=== PATIENT | male | born 1980 | race Caucasian/White ===

== ENCOUNTER 2019-09-24 19:11 | Emergency (ER) | payer MEDICAID, SELFPAY ==
[~2019-09-24] VITALS: Ht 160 cm; Wt 70.3 kg
[2019-09-24 19:16] VITALS: BP 153/72
[2019-09-24] MEDS ORDERED: NACL 0.9% 2,000 ML IV SCH (20:02)
[2019-09-24] MEDS ORDERED: ACETAMINOPHEN EXTRA STRENGTH 500 MG TAB PO ONE (20:05)
[2019-09-24] MEDS ORDERED: cefTRIAXone 1,000 MG VIAL ONE (20:16)
[2019-09-24 20:42] LABS: APPEARANCE,URINE CLEAR (CLEAR); BILIRUBIN,URINE 1+ (NEGATIVE); BLOOD, URINE 1+ (NEGATIVE); COLOR,URINE YELLOW (YELLOW); LEUKOCYTE ESTERASE ,URINE NEGATIVE (NEGATIVE); NITRITE, URINE NEGATIVE (NEGATIVE); PH,URINE 5.5 (5.0-9.0); UGLUCOSE NEGATIVE (NEGATIVE)
[2019-09-24 20:42] LABS: BASOPHILS # (AUTO) 0.1 K/uL (0.00-0.22); BASOPHILS % (AUTO) 0.9 % (0.0-2.0); HEMATOCRIT 44.4 % (36-52); HEMOGLOBIN 15.2 g/dL (12.0-18.0); LYMPHOCYTES # (AUTO) 1.1 K/uL (2.0-11.5); LYMPHOCYTES % (AUTO) 13.4 % (20.5-51.1); MEAN CORPUSCULAR HEMOGLOBIN 30 pg (27-31); MEAN CORPUSCULAR HGB CONC 34 g/dL (33-37); MEAN CORPUSCULAR VOLUME 88.7 fL (80-94); MONOCYTES # (AUTO) 0.7 K/uL (0.8-1.0); MONOCYTES % (AUTO) 8.5 % (1.7-9.3); NEUTROPHILS # (AUTO) 6.4 K/uL (1.8-7.7); NEUTROPHILS % (AUTO) 77.2 % (42.2-75.2); PLATELET COUNT (AUTO) 220 K/uL (140-450); RED BLOOD CELL COUNT(AUTO) 5.01 MIL/uL (4.20-6.10); RED CELL DISTRIBUTION WIDTH 12.7 % (11.6-13.7); WHITE BLOOD COUNT (AUTO) 8.3 K/uL (4.8-10.8)
[2019-09-24 20:51] LABS: RBC,URINE 11-20 (MOD) /HPF (0-5); WBC,URINE 0-5 /HPF (0-5)
[2019-09-24 20:54] LABS: PROTHROMBIN TIME 9.7 secs (10.8-13.4)
[2019-09-24 20:55] LABS: ALBUMIN 3.6 g/dL (3.4-5.0); ANION GAP 13.5 (8-16); CARBON DIOXIDE 29.6 mmol/L (21-32); CREATININE 1.2 mg/dL (0.6-1.3); POTASSIUM 4.1 mmol/L (3.5-5.1); TOTAL BILIRUBIN 0.4 mg/dL (0.0-1.0)
[2019-09-24] MEDS ORDERED: AZITHROMYCIN 500 MG in DEXTROSE 5% 250 ML IV ONE (21:25)
[2019-09-24] MEDS ORDERED: AZITHROMYCIN 500 MG INJ VIAL IV ONE (21:32)
[2019-09-24 23:56] VITALS: BP 103/70
== END 2019-09-24 23:55 | disposition home or self-care (01) ==
LOC: MED 19:11 → EEVIPCON 19:11 → MED 23:55
DX: A41.9 Sepsis, unspecified organism (principal); Z20.828 Contact with and (suspected) exposure to other viral communicable diseases; N39.0 Urinary tract infection, site not specified; J18.9 Pneumonia, unspecified organism
CPT/HCPCS: 36415; 71045; 80053; 81001; 83605; 85025; 85610; 85730; 87040; 87086; 87420; 87635; 87804; 96365; 96367; 99284; J0456; J0696; J7030; Q0092

== ENCOUNTER 2019-09-30 20:59 | Inpatient (IN) | payer MEDICAID, SELFPAY ==
[~2019-09-30] VITALS: Ht 157.5 cm; Wt 71.2 kg
[2019-09-30 21:00] VITALS: BP 127/80
[2019-09-30] MEDS ORDERED: AZITHROMYCIN 500 MG in DEXTROSE 5% 250 ML IV ONE (21:20)
[2019-09-30] MEDS ORDERED: ASCORBIC ACID 500 MG TAB PO ONE (21:20)
[2019-09-30] MEDS ORDERED: HYDROXYCHLOROQUINE 200 MG TAB PO ONE (21:20)
[2019-09-30] MEDS ORDERED: ZINC SULF 220 MG CAP PO ONE (21:20)
[2019-09-30] MEDS ORDERED: AZITHROMYCIN 500 MG INJ VIAL IV ONE (21:27)
[2019-09-30] MEDS ORDERED: ACETAMINOPHEN EXTRA STRENGTH 500 MG TAB ONE (21:36)
[2019-09-30 21:46] LABS: BASOPHILS # (AUTO) 0.1 K/uL (0.00-0.22); BASOPHILS % (AUTO) 0.5 % (0.0-2.0); HEMATOCRIT 37.6 % (36-52); HEMOGLOBIN 13.1 g/dL (12.0-18.0); LYMPHOCYTES # (AUTO) 0.7 K/uL (2.0-11.5); LYMPHOCYTES % (AUTO) 4.8 % (20.5-51.1); MEAN CORPUSCULAR HEMOGLOBIN 30 pg (27-31); MEAN CORPUSCULAR HGB CONC 35 g/dL (33-37); MEAN CORPUSCULAR VOLUME 87.2 fL (80-94); MONOCYTES # (AUTO) 0.8 K/uL (0.8-1.0); MONOCYTES % (AUTO) 5.7 % (1.7-9.3); NEUTROPHILS # (AUTO) 12.3 K/uL (1.8-7.7); PLATELET COUNT (AUTO) 358 K/uL (140-450); RED BLOOD CELL COUNT(AUTO) 4.32 MIL/uL (4.20-6.10); WHITE BLOOD COUNT (AUTO) 13.8 K/uL (4.8-10.8)
[2019-09-30] MEDS ORDERED: ACETAMINOPHEN EXTRA STRENGTH 500 MG TAB PO ONE (21:50)
[2019-09-30 22:11] LABS: BILIRUBIN,URINE 1+ (NEGATIVE); BLOOD, URINE 1+ (NEGATIVE); LEUKOCYTE ESTERASE ,URINE NEGATIVE (NEGATIVE); NITRITE, URINE NEGATIVE (NEGATIVE); UGLUCOSE NEGATIVE (NEGATIVE)
[2019-09-30 22:12] LABS: ALBUMIN 2.6 g/dL (3.4-5.0); ANION GAP 16.5 (8-16); CARBON DIOXIDE 23.4 mmol/L (21-32); CREATININE 1.2 mg/dL (0.6-1.3); POTASSIUM 3.9 mmol/L (3.5-5.1); TOTAL BILIRUBIN 1.2 mg/dL (0.0-1.0)
[2019-09-30] MEDS ORDERED: HYDROcodone/APAP 5/325 MG 1 TAB TAB PO PRN (22:25)
[2019-09-30] MEDS ORDERED: NACL 0.9% 1,000 ML IV SCH (22:25)
[2019-09-30] MEDS ORDERED: ONDANSETRON 4 MG/2 ML VIAL IM/IVP PRN (22:25)
[2019-09-30] MEDS ORDERED: MORPHINE SULFATE 2 MG/ML SYR IVP PRN (22:25)
[2019-09-30] MEDS ORDERED: ALBUTEROL HFA MDI 90 MCG/ACTUATION 8 GM INH PRN (22:25)
[2019-09-30] MEDS ORDERED: LORazepam 2 MG/ML VIAL IM/IVP PRN (22:25)
[2019-09-30] MEDS ORDERED: DOCUSATE SODIUM 100 MG GELCAP PO PRN (22:25)
[2019-09-30] MEDS ORDERED: ACETAMINOPHEN 325 MG TAB PO PRN (22:25)
[2019-09-30 22:49] LABS: APPEARANCE,URINE CLOUDY (CLEAR); COLOR,URINE RED (YELLOW)
[2019-09-30 22:51] LABS: WBC,URINE 0-5 /HPF (0-5)
[2019-09-30 22:52] LABS: HYALINE CASTS, URINE 0-10 /LPF (None Seen); URINE AMORPHOUS URATE 4+ /HPF (None Seen)
[2019-09-30 23:00] VITALS: BP 100/61
[2019-09-30 23:17] LABS: MAGNESIUM 2.1 mg/dL (1.8-2.4); PHOSPHORUS 3.4 mg/dL (2.5-4.9); THYROID STIMULATING HORMONE 0.81 uIU/mL (0.34-3.74)
[2019-10-01] MEDS ORDERED: cefTRIAXone 1,000 MG VIAL ONE (00:14)
[2019-10-01] MEDS: PANTOPRAZOLE 40 MG INJ VIAL IVP SCH ×2 (00:41→09:28)
[2019-10-01 02:33] LABS: BARBITURATE, URINE NEGATIVE ng/ml (NEG <=200); BENZODIAZEPINE, URINE NEGATIVE ng/mL (NEG <=200); CANNABINOID, URINE NEGATIVE ng/mL (NEG <=50); COCAINE, URINE NEGATIVE ng/mL (NEG <=300); OPIATE, URINE NEGATIVE ng/mL (NEG <=2000); PHENCYCLIDINE SCREEN,URINE NEGATIVE ng/mL (NEG <=25)
[2019-10-01 04:00] VITALS: BP 103/64
[2019-10-01] MEDS: DEXT 5% / NACL 0.9% 500 ML IV SCH (04:21)
[2019-10-01 06:37] LABS: PROTHROMBIN TIME 10.3 secs (10.8-13.4)
[2019-10-01 06:42] LABS: BASOPHILS % (AUTO) 0.5 % (0.0-2.0); EOSINOPHILS % (AUTO) 0.1 % (0.0-4.0); HEMOGLOBIN 12.8 g/dL (12.0-18.0); LYMPHOCYTES # (AUTO) 0.7 K/uL (2.0-11.5); MEAN CORPUSCULAR HEMOGLOBIN 31 pg (27-31); MEAN CORPUSCULAR HGB CONC 36 g/dL (33-37); MEAN CORPUSCULAR VOLUME 86.3 fL (80-94); MONOCYTES # (AUTO) 0.7 K/uL (0.8-1.0); MONOCYTES % (AUTO) 6.7 % (1.7-9.3); NEUTROPHILS # (AUTO) 8.6 K/uL (1.8-7.7); NEUTROPHILS % (AUTO) 85.7 % (42.2-75.2); PLATELET COUNT (AUTO) 335 K/uL (140-450); RED BLOOD CELL COUNT(AUTO) 4.17 MIL/uL (4.20-6.10); RED CELL DISTRIBUTION WIDTH 12.9 % (11.6-13.7)
[2019-10-01 07:20] LABS: CARBON DIOXIDE 27.9 mmol/L (21-32); CREATININE 1.1 mg/dL (0.6-1.3); POTASSIUM 3.9 mmol/L (3.5-5.1)
[2019-10-01 07:29] LABS: CHOL/HDL RATIO 6.4 (1-4.5)
[2019-10-01 08:00] VITALS: BP 103/66
[2019-10-01 08:18] LABS: AMYLASE 161 U/L (25-115); LIPASE 568 U/L (73-393)
[2019-10-01] MEDS ORDERED: HYDROXYCHLOROQUINE 200 MG TAB PO ONE (09:00)
[2019-10-01] MEDS ORDERED: AZITHROMYCIN 250 MG TAB PO SCH (09:00)
[2019-10-01] MEDS: ZINC SULF 220 MG CAP PO SCH (09:00)
[2019-10-01] MEDS: ASCORBIC ACID 500 MG TAB PO SCH (09:09)
[2019-10-01] MEDS: ENOXAPARIN 40 MG/0.4 ML SYR SUBQ SCH (09:45)
[2019-10-01 12:00] VITALS: BP 102/70
[2019-10-01 16:00] VITALS: BP 111/61
[2019-10-01] MEDS ORDERED: LIDOCAINE VISCOUS 2% 20 ML UDC PO SCH (17:20)
[2019-10-01] MEDS ORDERED: ALUMINUM HYD/MAG/SIMETHICONE 30 ML UDC PO SCH (17:20)
[2019-10-01] MEDS ORDERED: DICYCLOMINE HCL LIQUID 10 MG/5 ML UDC PO SCH (17:20)
[2019-10-01 20:00] VITALS: BP 96/62
[2019-10-01] MEDS: HYDROXYCHLOROQUINE 200 MG TAB PO SCH (21:45)
[2019-10-01] MEDS ORDERED: AZITHROMYCIN 500 MG in DEXTROSE 5% 250 ML IV SCH (22:00)
[2019-10-02] VITALS: BP 106/62
[2019-10-02 04:00] VITALS: BP 109/71
[2019-10-02] MEDS: DEXT 5% / NACL 0.9% 500 ML IV SCH (04:52)
[2019-10-02 06:28] LABS: ANION GAP 12.1 (8-16); BASOPHILS % (AUTO) 0.3 % (0.0-2.0); CARBON DIOXIDE 28.4 mmol/L (21-32); CREATININE 0.9 mg/dL (0.6-1.3); EOSINOPHILS % (AUTO) 0.1 % (0.0-4.0); HEMATOCRIT 34.9 % (36-52); HEMOGLOBIN 12.2 g/dL (12.0-18.0); LYMPHOCYTES # (AUTO) 0.9 K/uL (2.0-11.5); LYMPHOCYTES % (AUTO) 13.2 % (20.5-51.1); MEAN CORPUSCULAR HEMOGLOBIN 30 pg (27-31); MEAN CORPUSCULAR HGB CONC 35 g/dL (33-37); MEAN CORPUSCULAR VOLUME 87.2 fL (80-94); MONOCYTES # (AUTO) 0.8 K/uL (0.8-1.0); MONOCYTES % (AUTO) 11.1 % (1.7-9.3); NEUTROPHILS # (AUTO) 5.3 K/uL (1.8-7.7); NEUTROPHILS % (AUTO) 75.3 % (42.2-75.2); PLATELET COUNT (AUTO) 335 K/uL (140-450); POTASSIUM 3.5 mmol/L (3.5-5.1); RED BLOOD CELL COUNT(AUTO) 4.01 MIL/uL (4.20-6.10); RED CELL DISTRIBUTION WIDTH 12.8 % (11.6-13.7)
[2019-10-02 06:34] LABS: MAGNESIUM 1.9 mg/dL (1.8-2.4); PHOSPHORUS 3.8 mg/dL (2.5-4.9)
[2019-10-02 08:00] VITALS: BP 100/67
[2019-10-02] MEDS: PANTOPRAZOLE 40 MG INJ VIAL IVP SCH (08:56)
[2019-10-02] MEDS: ZINC SULF 220 MG CAP PO SCH (08:57)
[2019-10-02] MEDS: ASCORBIC ACID 500 MG TAB PO SCH (08:57)
[2019-10-02] MEDS: HYDROXYCHLOROQUINE 200 MG TAB PO SCH ×2 (08:57→21:33)
[2019-10-02] MEDS: ENOXAPARIN 40 MG/0.4 ML SYR SUBQ SCH (08:59)
[2019-10-02 12:00] VITALS: BP 103/70
[2019-10-02 16:00] VITALS: BP 100/64
[2019-10-02 20:00] VITALS: BP 109/71
[2019-10-03] VITALS: BP 101/69
[2019-10-03 04:00] VITALS: BP 117/74
[2019-10-03] MEDS: DEXT 5% / NACL 0.9% 500 ML IV SCH (05:03)
[2019-10-03 07:44] LABS: MAGNESIUM 2.1 mg/dL (1.8-2.4); PHOSPHORUS 3.9 mg/dL (2.5-4.9)
[2019-10-03 07:45] LABS: BASOPHILS % (AUTO) 0.6 % (0.0-2.0); EOSINOPHILS % (AUTO) 0.3 % (0.0-4.0); HEMATOCRIT 35.1 % (36-52); HEMOGLOBIN 12.2 g/dL (12.0-18.0); LYMPHOCYTES # (AUTO) 0.9 K/uL (2.0-11.5); LYMPHOCYTES % (AUTO) 11.4 % (20.5-51.1); MEAN CORPUSCULAR HEMOGLOBIN 31 pg (27-31); MEAN CORPUSCULAR HGB CONC 35 g/dL (33-37); MEAN CORPUSCULAR VOLUME 87.7 fL (80-94); MONOCYTES # (AUTO) 0.9 K/uL (0.8-1.0); MONOCYTES % (AUTO) 10.9 % (1.7-9.3); NEUTROPHILS # (AUTO) 6.4 K/uL (1.8-7.7); NEUTROPHILS % (AUTO) 76.8 % (42.2-75.2); PLATELET COUNT (AUTO) 377 K/uL (140-450); RED BLOOD CELL COUNT(AUTO) 4.01 MIL/uL (4.20-6.10); RED CELL DISTRIBUTION WIDTH 12.9 % (11.6-13.7); WHITE BLOOD COUNT (AUTO) 8.3 K/uL (4.8-10.8)
[2019-10-03 08:00] VITALS: BP 102/70
[2019-10-03] MEDS: PANTOPRAZOLE 40 MG INJ VIAL IVP SCH (08:21)
[2019-10-03] MEDS: ASCORBIC ACID 500 MG TAB PO SCH (08:21)
[2019-10-03] MEDS: ZINC SULF 220 MG CAP PO SCH (08:21)
[2019-10-03] MEDS: ENOXAPARIN 40 MG/0.4 ML SYR SUBQ SCH (08:23)
[2019-10-03] MEDS ORDERED: AZITHROMYCIN 500 MG in DEXTROSE 5% 250 ML IV SCH (09:00)
[2019-10-03 09:25] LABS: ANION GAP 11.3 (8-16); CARBON DIOXIDE 28.3 mmol/L (21-32); CREATININE 0.7 mg/dL (0.6-1.3); POTASSIUM 3.6 mmol/L (3.5-5.1)
[2019-10-03 12:00] VITALS: BP 102/68
[2019-10-03 16:00] VITALS: BP 110/72
[2019-10-03 20:00] VITALS: BP 110/72
[2019-10-04] VITALS: BP 112/69
[2019-10-04 04:00] VITALS: BP 111/70
[2019-10-04] MEDS: DEXT 5% / NACL 0.9% 500 ML IV SCH (04:00)
[2019-10-04 07:10] LABS: BASOPHILS # (AUTO) 0.1 K/uL (0.00-0.22); BASOPHILS % (AUTO) 0.4 % (0.0-2.0); EOSINOPHILS # (AUTO) 0.1 K/uL (0-0.4); HEMATOCRIT 35.9 % (36-52); HEMOGLOBIN 12.1 g/dL (12.0-18.0); LYMPHOCYTES % (AUTO) 8.9 % (20.5-51.1); MEAN CORPUSCULAR HEMOGLOBIN 30 pg (27-31); MEAN CORPUSCULAR HGB CONC 34 g/dL (33-37); MEAN CORPUSCULAR VOLUME 88.1 fL (80-94); MONOCYTES # (AUTO) 1.1 K/uL (0.8-1.0); MONOCYTES % (AUTO) 9.9 % (1.7-9.3); NEUTROPHILS # (AUTO) 9.2 K/uL (1.8-7.7); NEUTROPHILS % (AUTO) 79.8 % (42.2-75.2); PLATELET COUNT (AUTO) 463 K/uL (140-450); RED BLOOD CELL COUNT(AUTO) 4.07 MIL/uL (4.20-6.10); RED CELL DISTRIBUTION WIDTH 12.7 % (11.6-13.7); WHITE BLOOD COUNT (AUTO) 11.5 K/uL (4.8-10.8)
[2019-10-04 07:33] LABS: ANION GAP 9.7 (8-16); CARBON DIOXIDE 29.9 mmol/L (21-32); CREATININE 0.7 mg/dL (0.6-1.3); POTASSIUM 3.6 mmol/L (3.5-5.1)
[2019-10-04 08:00] VITALS: BP 107/71
[2019-10-04 08:07] LABS: MAGNESIUM 2.1 mg/dL (1.8-2.4); PHOSPHORUS 3.8 mg/dL (2.5-4.9)
[2019-10-04] MEDS: HYDROXYCHLOROQUINE 200 MG TAB PO SCH (08:24)
[2019-10-04] MEDS: ZINC SULF 220 MG CAP PO SCH (08:24)
[2019-10-04] MEDS: PANTOPRAZOLE 40 MG INJ VIAL IVP SCH (08:24)
[2019-10-04] MEDS: ASCORBIC ACID 500 MG TAB PO SCH (08:24)
[2019-10-04] MEDS: ENOXAPARIN 40 MG/0.4 ML SYR SUBQ SCH (08:25)
[2019-10-04] MEDS ORDERED: HYDROXYCHLOROQUINE 200 MG TAB PO SCH (09:00)
[2019-10-04 12:00] VITALS: BP 100/65
[2019-10-04 16:00] VITALS: BP 110/79
[2019-10-04 20:00] VITALS: BP 105/67
[2019-10-05] VITALS: BP 100/57
[2019-10-05 04:00] VITALS: BP 103/66
[2019-10-05] MEDS: DEXT 5% / NACL 0.9% 500 ML IV SCH (04:00)
[2019-10-05 07:32] LABS: ANION GAP 10.6 (8-16); CARBON DIOXIDE 28.3 mmol/L (21-32); CREATININE 0.8 mg/dL (0.6-1.3); POTASSIUM 3.9 mmol/L (3.5-5.1)
[2019-10-05 07:33] LABS: BASOPHILS % (AUTO) 0.5 % (0.0-2.0); EOSINOPHILS # (AUTO) 0.2 K/uL (0-0.4); EOSINOPHILS % (AUTO) 2.5 % (0.0-4.0); HEMATOCRIT 34.9 % (36-52); HEMOGLOBIN 12.1 g/dL (12.0-18.0); LYMPHOCYTES # (AUTO) 1.2 K/uL (2.0-11.5); LYMPHOCYTES % (AUTO) 13.3 % (20.5-51.1); MEAN CORPUSCULAR HEMOGLOBIN 30 pg (27-31); MEAN CORPUSCULAR HGB CONC 35 g/dL (33-37); MEAN CORPUSCULAR VOLUME 87.9 fL (80-94); MONOCYTES # (AUTO) 0.7 K/uL (0.8-1.0); MONOCYTES % (AUTO) 7.6 % (1.7-9.3); NEUTROPHILS # (AUTO) 6.8 K/uL (1.8-7.7); NEUTROPHILS % (AUTO) 76.1 % (42.2-75.2); PLATELET COUNT (AUTO) 519 K/uL (140-450); RED BLOOD CELL COUNT(AUTO) 3.97 MIL/uL (4.20-6.10); RED CELL DISTRIBUTION WIDTH 12.8 % (11.6-13.7)
[2019-10-05 07:52] LABS: MAGNESIUM 2.2 mg/dL (1.8-2.4)
[2019-10-05 08:00] VITALS: BP 106/66
[2019-10-05] MEDS: PANTOPRAZOLE 40 MG INJ VIAL IVP SCH (09:22)
[2019-10-05] MEDS: ASCORBIC ACID 500 MG TAB PO SCH (09:22)
[2019-10-05] MEDS: HYDROXYCHLOROQUINE 200 MG TAB PO SCH (09:23)
[2019-10-05] MEDS: ZINC SULF 220 MG CAP PO SCH (09:23)
[2019-10-05] MEDS: ENOXAPARIN 40 MG/0.4 ML SYR SUBQ SCH (09:43)
[2019-10-05 12:00] VITALS: BP 119/80
[2019-10-05 16:00] VITALS: BP 105/68
[2019-10-05 20:00] VITALS: BP 111/65
[2019-10-06] VITALS: BP 106/58
[2019-10-06 04:00] VITALS: BP 96/65
[2019-10-06] MEDS: DEXT 5% / NACL 0.9% 500 ML IV SCH (06:10)
[2019-10-06 07:21] LABS: BASOPHILS % (AUTO) 0.7 % (0.0-2.0); EOSINOPHILS # (AUTO) 0.3 K/uL (0-0.4); HEMATOCRIT 36.2 % (36-52); HEMOGLOBIN 12.4 g/dL (12.0-18.0); LYMPHOCYTES # (AUTO) 1.2 K/uL (2.0-11.5); MEAN CORPUSCULAR HEMOGLOBIN 31 pg (27-31); MEAN CORPUSCULAR HGB CONC 34 g/dL (33-37); MEAN CORPUSCULAR VOLUME 88.7 fL (80-94); MONOCYTES # (AUTO) 0.6 K/uL (0.8-1.0); MONOCYTES % (AUTO) 9.1 % (1.7-9.3); NEUTROPHILS # (AUTO) 4.6 K/uL (1.8-7.7); NEUTROPHILS % (AUTO) 68.2 % (42.2-75.2); PLATELET COUNT (AUTO) 590 K/uL (140-450); RED BLOOD CELL COUNT(AUTO) 4.08 MIL/uL (4.20-6.10); RED CELL DISTRIBUTION WIDTH 12.4 % (11.6-13.7); WHITE BLOOD COUNT (AUTO) 6.7 K/uL (4.8-10.8)
[2019-10-06 07:51] LABS: CARBON DIOXIDE 27.1 mmol/L (21-32); CREATININE 0.8 mg/dL (0.6-1.3); POTASSIUM 4.1 mmol/L (3.5-5.1)
[2019-10-06 08:00] VITALS: BP 109/68
[2019-10-06] MEDS: ENOXAPARIN 40 MG/0.4 ML SYR SUBQ SCH (08:55)
[2019-10-06] MEDS: PANTOPRAZOLE 40 MG INJ VIAL IVP SCH (08:56)
[2019-10-06] MEDS: ASCORBIC ACID 500 MG TAB PO SCH (08:56)
[2019-10-06] MEDS: ZINC SULF 220 MG CAP PO SCH (08:56)
[2019-10-06 10:01] LABS: MAGNESIUM 2.2 mg/dL (1.8-2.4); PHOSPHORUS 4.2 mg/dL (2.5-4.9)
[2019-10-06 12:00] VITALS: BP 117/72
[2019-10-06 16:00] VITALS: BP 102/71
[2019-10-06 20:00] VITALS: BP 104/61
[2019-10-07] VITALS: BP 106/66
[2019-10-07 04:00] VITALS: BP 98/65
[2019-10-07] MEDS: DEXT 5% / NACL 0.9% 500 ML IV SCH (04:00)
[2019-10-07 07:41] LABS: BASOPHILS % (AUTO) 0.5 % (0.0-2.0); EOSINOPHILS # (AUTO) 0.2 K/uL (0-0.4); EOSINOPHILS % (AUTO) 2.9 % (0.0-4.0); HEMATOCRIT 42.4 % (36-52); HEMOGLOBIN 14.4 g/dL (12.0-18.0); LYMPHOCYTES # (AUTO) 1.5 K/uL (2.0-11.5); LYMPHOCYTES % (AUTO) 20.1 % (20.5-51.1); MEAN CORPUSCULAR HEMOGLOBIN 30 pg (27-31); MEAN CORPUSCULAR HGB CONC 34 g/dL (33-37); MEAN CORPUSCULAR VOLUME 89.8 fL (80-94); MONOCYTES # (AUTO) 0.6 K/uL (0.8-1.0); MONOCYTES % (AUTO) 7.5 % (1.7-9.3); NEUTROPHILS # (AUTO) 5.1 K/uL (1.8-7.7); PLATELET COUNT (AUTO) 844 K/uL (140-450); RED BLOOD CELL COUNT(AUTO) 4.72 MIL/uL (4.20-6.10); RED CELL DISTRIBUTION WIDTH 12.9 % (11.6-13.7); WHITE BLOOD COUNT (AUTO) 7.4 K/uL (4.8-10.8)
[2019-10-07 07:57] LABS: ANION GAP 13.7 (8-16); POTASSIUM 3.7 mmol/L (3.5-5.1)
[2019-10-07 08:00] VITALS: BP 110/76
[2019-10-07 08:21] LABS: MAGNESIUM 2.1 mg/dL (1.8-2.4); PHOSPHORUS 4.3 mg/dL (2.5-4.9)
[2019-10-07 08:28] LABS: ALBUMIN 2.7 g/dL (3.4-5.0); BILIRUBIN,DIRECT 0.1 mg/dL (0.0-0.3); TOTAL BILIRUBIN 0.3 mg/dL (0.0-1.0)
[2019-10-07] MEDS: ENOXAPARIN 40 MG/0.4 ML SYR SUBQ SCH (09:05)
[2019-10-07] MEDS: PANTOPRAZOLE 40 MG INJ VIAL IVP SCH (09:06)
[2019-10-07] MEDS: ASCORBIC ACID 500 MG TAB PO SCH (09:06)
[2019-10-07] MEDS: ZINC SULF 220 MG CAP PO SCH (09:07)
[2019-10-07 12:00] VITALS: BP 108/72
[2019-10-07] MEDS ORDERED: VITC500 PO (16:05)
[2019-10-07] MEDS ORDERED: PRON INH (16:05)
== END 2019-10-07 16:45 | disposition home or self-care (01) | DRG 720 ==
LOC: EEVIPCON 20:59 → MED 20:59 → MMU 22:25 → MTU 10-02 12:29
PROVIDERS: ADMIT General Practice; ATTEND General Practice
DX: A41.9 Sepsis, unspecified organism (principal); U07.1 COVID-19; E43 Unspecified severe protein-calorie malnutrition; J96.01 Acute respiratory failure with hypoxia; E86.0 Dehydration; R73.9 Hyperglycemia, unspecified; R74.0 Nonspecific elevation of levels of transaminase and lactic acid dehydrogenase [LDH]; F43.9 Reaction to severe stress, unspecified; J12.89 Other viral pneumonia; E87.1 Hypo-osmolality and hyponatremia; Z68.28 Body mass index [BMI] 28.0-28.9, adult; Z79.899 Other long term (current) drug therapy
CPT/HCPCS: 36415; 36600; 71045; 80048; 80053; 80076; 80305; 81001; 82150; 82550; 82728; 82803; 83036; 83605; 83615; 83690; 83735; 83880; 84100; 84443; 84484; 85025; 85379; 85610; 85651; 85730; 86140; 87040; 87081; 87086; 93005; 99285; C9113; J0456; J0696; J1650; J2270; J7030; J7042; J7060; Q0092